=== PATIENT | female | born 1975 | race Caucasian/White ===

== ENCOUNTER → 2023-10-02 09:13 | Outpatient (REF) | payer MEDICARE, MEDICAID, SELFPAY | LOC: RCS 09:13 | PROVIDERS: ATTENDING PHYSICIAN Internal Medicine Cardiovascular Disease; FAMILY PHYSICIAN Family Medicine | DX: Q21.0 Ventricular septal defect (principal) | CPT/HCPCS: 93306 ==

== ENCOUNTER → 2024-02-05 08:05 | Outpatient (REF) | payer MEDICARE, MEDICAID, SELFPAY | LOC: HWRAD 08:05 | PROVIDERS: ATTENDING PHYSICIAN Internal Medicine Rheumatology; FAMILY PHYSICIAN Family Medicine | DX: M81.0 Age-related osteoporosis without current pathological fracture (principal) | CPT/HCPCS: 77080 ==

== ENCOUNTER → 2024-03-10 10:25 | Outpatient (REF) | payer MEDICARE, MEDICAID, SELFPAY | LOC: WDC 10:25 | PROVIDERS: ATTENDING PHYSICIAN Obstetrics & Gynecology Gynecology; FAMILY PHYSICIAN Family Medicine | DX: Z12.31 Encounter for screening mammogram for malignant neoplasm of breast (principal) | CPT/HCPCS: 77063; 77067 ==